=== PATIENT | male | born 2000 | race Caucasian/White ===

== ENCOUNTER 2018-04-20 14:40 | Emergency (ER) | payer OTHER ==
[~2018-04-20] VITALS: Ht 167.6 cm; Wt 97.5 kg
[2018-04-20] MEDS ORDERED: IBUP-1984 PO (15:45)
[2018-04-20 15:52] VITALS: BP 129/77
== END 2018-04-20 15:53 | disposition home or self-care (01) ==
LOC: ER 14:40
DX: S93.401A Sprain of unspecified ligament of right ankle, initial encounter (principal); Z79.899 Other long term (current) drug therapy; X58.XXXA Exposure to other specified factors, initial encounter; Y93.89 Activity, other specified; Y92.89 Other specified places as the place of occurrence of the external cause; Y99.8 Other external cause status
CPT/HCPCS: 73610; 99284